=== PATIENT | male | born 1950 | race Caucasian/White ===

== ENCOUNTER 2018-12-20 13:29 | Day surgery (SDC) | payer MEDICARE, OTHER, SELFPAY ==
[2018-06-03 14:41] VITALS: BMI 28.1
--- NOTE | 2018-12-17 10:56 | PCM.HP.BLA ---
History and Physical Date of Admission: 12/20/18 HISTORY AND PHYSICAL ? Armando Warner 1950 ? REFERRING PHYSICIAN: ??Self, MD ? CHIEF COMPLAINT: ??Established Patient (EGD- Cardiac now cleared) ? HPI: The patient is a 68 year old male referred for endoscopy.??Per my previous H&P from 05/19/18: ? The patient is a 67 year old male referred for endoscopy. ?Armando notes progressive dysphagia x over a year, states symptoms have worsened following his open heart surgery in December 2016.??Notes swallowing difficulties both with solid food and liquids, has sensation of food becoming stuck with swallowing, will then start coughing and gagging. ?States this used to occur around once a week, now becoming more frequent and happening with almost every meal. ?He has tried ranitidine with little relief. ?Patient denies any change in bowel habits, weight changes, blood in stools, black tarry stools or abdominal pain.??He is a former smoker. ? ? Patient states he was told in the past that he had a hiatal hernia and thought his symptoms may be related to this. ?He was evaluated at [facility] by Dr. Marshall and underwent esophagram which showed a small hiatal hernia, severe esophageal dysmotility, and suspected mild stricturing of the distal esophagus. ??EGD was ordered for further evaluation. ?H&P from resident states that patient would need anesthesia consult prior to OR. ?Patient had requested to have EGD?done locally. ?[facility] schedulers contacted [facility] insurance sales supervisor, case was reviewed by?Dr. Burgess who agreed to perform EGD in [place]. ?Patient is scheduled to have this done Thursday05/24/18 under moderate sedation in the [facility]. ? On preop chart review, endoscopy staff had noted outside records with significant cardiac history not previously listed in patient's medical or surgical history in [facility]. ?[facility] staff updated patient's medical and surgical history and the information was relayed to Dr. Burgess who requested that patient have an office visit with either Kristyn Marcos CNP in GI or myself in General Surgery prior to his scheduled procedure. ?Patient was placed on my schedule urgently for office visit. ? Patient notes history of myocardial infarction in 2016, underwent CABG in December 2016. ?He follows with Dr. Rodriguez at [place] [place] in [facility], states was last seen around 3 months ago. ? ? Patient notes recurrent episodes of chest pain over the last year, has had several emergency department visits for this. ?He reports he had a stress test in January 2018 that came back OK. ?He admits to recently having episodes of severe pain up through the middle of his chest, different from his prior pain. ?States had one of these episodes last week while he was traveling. ?Had associated dizziness, nausea and general malaise, he also checked his blood pressure and noted it was significantly elevated at 170/105. ?He notes that he checks his blood pressure regularly twice a day and normally runs 130/80. ?Patient states that he thought about going to the ER during this episode, but decided to try over the counter garlic supplement instead. ?He states his symptoms gradually resolved over the next 3 days. ?When asked if he informed his PCP or credit and collections analyst of these symptoms, he states he has not. ?Patient also admits to shortness of breath with exertion. ?He denies any chest pain or other complaints in office here today. ?Denies problems with sedation in the past. ? ?Patient's procedure scheduled for the [facility] was cancelled, and he was instructed to follow up with credit and collections analyst for clearance prior to EGD. ?I had also recommended that when rescheduled he be set up with [facility] due to his cardiac history. ? Patient presents today to reschedule EGD with MAC. ?He has been evaluated by his credit and collections analyst in the interim since last visit, and those records are reviewed. ?Per Dr. Vickers's note from 05/28/18 patient is cleared for surgery-cardiac clearance scanned into [employer]. ?Patient notes he has been working to get his blood pressure under better control since last visit and this is going well. ?He denies any new complaints currently. ?He continues to note dysphagia, slightly worse since last visit. ?Patient has never had screening colonoscopy. ? The patient denies any significant change to his overall health since his last visit. ?His past medical history, past surgical history, medications and allergies are up to date as of this visit. ? ? PAST?MEDICAL?HISTORY PAST MEDICAL HISTORY Diagnosis Date ? Abnormal stress test ? ? Acid reflux ? ? CAD (coronary artery disease) ? ? Dyslipidemia ? ? Hiatal hernia ? ? History of stress test 02/08/2018 ? Lexiscan done at [facility] with credit and collections analyst Dr. Vickers ? HTN (hypertension) ? ? Hx of CABG 12/19/2016 ? x 3 ? Kidney stone ? ? Mild ascending aorta dilatation (HCC) ? ? Myocardial infarction (HCC) ? ? credit and collections analyst Dr. Vickers ? Paroxysmal atrial fibrillation (HCC) ? ? Vertigo ? ? ? PAST?SURGICAL?HISTORY PAST SURGICAL HISTORY Procedure Laterality Date ? BACK SURGERY HX ? ? ? CABG (3) VEIN GRAFTS & ARTERIAL GRAFT(S) ? 12/19/2016 ? INGUINAL HERNIA REPAIR HX ? ? ? 2 on the left and 1 on the right ? PAST SURGICAL HISTORY OF ? ? ? kidney stone extraction ? ? CURRENT?MEDICATIONS ? Current Outpatient Medications: metoprolol succinate ER (TOPROL XL) 25 mg 24 hr tablet ? lisinopril 2.5 mg tablet ? famotidine (PEPCID) 20 mg tablet ? atorvastatin (LIPITOR) 40 mg tablet ? ranitidine (ZANTAC) 150 mg tablet Take 150 mg by mouth twice daily. aspirin (ASPIR-81 ORAL) Take by mouth. ubidecarenone Q-10 (CO Q-10) 10 mg cap Take 200 mg by mouth twice daily. ? No current facility-administered medications for this visit.? ? ALLERGIES:?Patient has no known allergies. ? PERSONAL HISTORY:? SOCIAL?HISTORY Social History ??Socioeconomic History ?Marital status: ?Spouse name: Not on file ?Number of children: Not on file ?Years of education: Not on file ?Highest education level: Not on file ??Occupational History ?Not on file ??Social Needs ?Financial resource strain: Not on file ?Food insecurity: ?Worry: Not on file ?Inability: Not on file ?Transportation needs: ?Medical: Not on file ?Non-medical: Not on file ??Tobacco Use ?Smoking status: Former Smoker ?Smokeless tobacco: Never Used ??Substance and Sexual Activity ?Alcohol use: Not Currently ?Drug use: Not on file ?Sexual activity: Not on file ??Lifestyle ?Physical activity: ?Days per week: Not on file ?Minutes per session: Not on file ?Stress: Not on file ??Relationships ?Social connections: ?Talks on phone: Not on file ?Gets together: Not on file ?Attends mandaeism service: Not on file ?Active member of club or organization: Not on file ?Attends meetings of clubs or organizations: Not on file ?Relationship status: Not on file ?Intimate partner violence: ?Fear of current or ex partner: Not on file ?Emotionally abused: Not on file ?Physically abused: Not on file ?Forced sexual activity: Not on file ??Other Topics ?Concerns: ?Not on file ??Social History Narrative ?Not on file ? FAMILY HISTORY:? FAMILY?HISTORY FAMILY HISTORY Adopted: Yes ? REVIEW OF SYMPTOMS: ??The review of systems data was entered by the nurse and reviewed by me ? Nursing Notes: Joey Alas ?11/29/2018 ?9:36 AM ?Signed REVIEW OF SYSTEMS: ?General:???The patient denies fatigue, denies weight loss, denies weight gain, denies feeling hot, and denies feelings of cold. ?Eyes: ?The patient denies glaucoma, denies eye injury/surgery, does not wear glasses or contacts. ?Ear/Nose/Throat: ?The patient NOTES allergies, denies hayfever, denies ear infections, and denies bloody noses. ?Cardiovascular: ?The patient denies chest pain, denies heart disease, NOTES high blood pressure,denies cardiac stent, denies prior heart attack, denies irregular heart beat, denies high cholesterol, ?NOTES poor circulation, denies heart failure, other cardiac issues, denies claudication, NOTES cold feet, denies peripheral arterial stent. ?Respiratory: ?The patient denies tuberculosis, denies pneumonia, denies frequent cough, denies pulmonary embolism, NOTES shortness of breath, and denies coughing up blood. ?Gastrointestinal: ?The patient NOTES difficulty swallowing, denies acid reflux, denies ulcers, denies vomiting, denies jaundice/hepatitis, denies gallbladder problems, denies black or tarry stools, denies hemorrhoids, denies bleeding from rectum, denies diverticulitis, denies constipation, denies diarrhea, denies loss of stool control, and denies hernias. ?Kidney/Bladder: ?The patient denies kidney stones, denies urine infections, and denies bloody urine. ?Skin: ?The patient denies a history of skin cancer, denies bleeding/changing moles, and denies a history of skin rash. ?Neurologic: ?The patient denies a history of epilepsy/convulsions, denies headaches, denies head/spinal injuries, and denies stroke/TIA. ?Psychiatric: ?The patient denies psychiatric medications, denies depression, and denies voices, denies substance abuse. ?Endocrine: ?The patient denies thyroid disorders, denies diabetes, and denies hormonal problems. ?Hematologic: ?The patient denies a history of bruising, denies bleeding, and denies anemia, denies blood clots. ?Infections: ?The patient denies a history of measles and mumps, denies rheumatic fever, and denies sexually transmitted diseases. ?Musculoskeletal: ?The patient denies back pain/injury, denies back problems, NOTES sciatica, denies knee/foot trouble, NOTES arthritis, or denies gout. ? ? When was patient's last Mammogram screening? N/A ? ?Last Colonoscopy: ?NA, decline to schedule ? ? Joey Alas? I have confirmed and edited as necessary, the PFSH and ROS obtained by others. ? ? PHYSICAL EXAMINATION: ? General: ?The patient is 68 year old male, well nourished, well hydrated in no acute distress. ?The patient is oriented to time, place, and person. ? VITALS:?Blood pressure 138/74, pulse 68, temperature 36.2 ?C (97.1 ?F), temperature source Temporal Artery, height 185.4 cm (6' 1), weight 114.8 kg (253 lb), SpO2 99 %.?Body mass index is 33.38 kg/m?.? ? HEENT: ?Normal cephalic, ataumatic, pupils are equally round, sclera are anicteric, mucous membranes are moist, oropharynx is clear. ?Neck has no masses, asymmetry or lymphadenopathy. ? ? Respiratory: ?Clear to auscultation and percussion. ?Normal respiratory excursion and pattern. ? Cardiac: ?Examination is regular rate and rhythm. ?Normal S1/S2 ? Abdominal exam: ?Soft, nontender, ?with no palpable masses. ?No hepatosplenomegaly. ?No palpable hernias. ? Extremities: ?no clubbing, cyanosis or edema. ?No adenopathy. ? LABORATORY VALUES: As Noted ? RADIOLOGIC STUDIES: ?As Noted ? Assessment ? IMPRESSION:?dysphagia and chest pain, cardiac history-cleared by cardiology to proceed with EGD ? PLAN: ?I have reviewed my findings with the surgeon. ?Will plan for upper?endoscopy. ??Offered colonoscopy as patient has never had screening colonoscopy-he declines at this time.??We discussed the risks and benefits of the planned?EGD. ?I have informed the patient that complications can occur including failure to complete the endoscopy and perforation. ?The patient had the opportunity to ask questions concerning the planned endoscopy. ?My staff has also explained the procedure to the patient in understandable terms and has given the patient printed material concerning the procedure. ?The patient freely consents to surgery. ? We will plan for [facility]. ? ? Diagnoses:?(R13.10) Esophageal dysphagia ?(primary encounter diagnosis) (Z95.1) Hx of CABG (K44.9) Hiatal hernia (I25.2) History of [place] (myocardial infarction) (Z87.898) History of chest pain ? ? Brunilda Salas PA-C
--- NOTE | 2018-12-20 | IMM_PTH ---
PATIENT: MICHELLE SHEN LOC: EN U#:[id number] AGE/SX: 68/M ROOM: RE12/20/[address]: Dr. Luther Bucio MD : 1950 BED: DIS: 12/20/2018 SPEC #: [id number] RECD: 12/22/18 12:17 STATUS: NAVEED REQ #: [id number] JOÃO: 12/20/18 00:[address]: Luther Bucio DEPT: IMMUNOHISTOCHEMISTRY RECD BY: Kellie Crump ENTERED: 12/22/18 12:18 SP TYPE: IMMUNO OTHR DR: Dr. Joseluis Manzanares MD Tissues: A - Stomach, NOS Procedures: H Pylori (initial) PHYSICIAN & INSTITUTION [place] [id number] SPECIMEN INFORMATION: Tissue Source: A - Antral biopsy Clinical Info: Dysphagia, hiatal hernia, chest pain Specimen Number: [id number] CPT code: 35630 METHODOLOGY: Deparaffinized sections of prefer/formalin-fixed tissue or PAP/DQ stained slides are incubated with monoclonal/polyclonal antibodies/oligonucleotide probes. Localization is made via biotin free immunoperoxidase method. Appropriate controls are performed and reacted as expected. Results on target cell population are indicated in the following table: RESULTS: ANTIBODY / CLONE RESULT Block A H Pylori (polyclonal) negative These tests were developed and their performance characteristics determined by [facility]. They may not have been cleared or approved by the U.S. Food and Drug Administration. The FDA has determined that such clearance or approval is not necessary. The above immunohistochemical/dualISH markers are ordered and reviewed by the Pathologist. INTERPRETATION: A. Antral biopsy: Negative for Helicobacter pylori organisms. SJ:mariama 12/22/18
--- NOTE | 2018-12-20 13:30 | EGD_PTH ---
PATIENT: MICHELLE SHEN LOC: EN U#:[id number] AGE/SX: 68/M ROOM: RE12/20/[address]: Dr. Luther Bucio MD : 1950 BED: DIS: 12/20/2018 SPEC #: [id number] RECD: 12/20/18 16:52 STATUS: NAVEED MARISOL #: [id number] JOÃO: 12/20/18 13:[address]: Luther Bucio DEPT: SURGICAL PATHOLOGY RECD BY: Romero Hurtado ENTERED: 12/21/18 09:27 SP TYPE: EGD BIOPSY OT DR: Dr. Joseluis Manzanares MD Tissues: A - Gastric mucous membrane B - Gastric mucous membrane C - Esophageal mucous membrane Procedures: Special Stain Group II Surgery Specimen Level IV Alcian Blue/PAS (control) HEADER OPERATION: EGD ([facility]) PRE-OP DIAGNOSIS: Dysphagia, hiatal hernia, chest pain TISSUE SUBMITTED: A. Antral biopsy, B. Biopsy GE junction, C. Mid esophageal biopsy MICROSCOPIC DIAGNOSIS A. Antral biopsy: Mild gastritis. See microscopic description and comment. B. GE junction, biopsy: Fragments of gastroesophageal mucosa with mild chronic inflammation. Intestinal metaplasia (goblet cell metaplasia) is not identified. See comment. C. Mid esophageal biopsy: Fragments of squamous epithelium with minimal chronic inflammation. SJ:rg 12/22/18 COMMENT A. The results of immunohistochemistry for Helicobacter pylori will be reported separately ([id number]). B. Alcian blue/PAS stain with matched control is used in the evaluation of the specimen. MICROSCOPIC DESCRIPTION Slides are reviewed. A. The specimen shows fragments of gastric mucosa with chronic inflammatory cell infiltrates in the lamina propria consisting of lymphocytes and plasma cells, consistent with mild chronic gastritis. GROSS DESCRIPTION A - Received in fixative is one container labeled with the patient's name and designated antral biopsy. The specimen consists of one irregular fragment of light santiago soft tissue that measures 0.7 x 0.3 x 0.1 cm. The specimen is totally submitted in one cassette. B - Received in fixative is one container labeled with the patient's name and designated biopsy GE junction. The specimen consists of two irregular fragments of light santiago soft tissue that in aggregate measure 0.6 x 0.3 x 0.1 cm. The specimen is totally submitted in one cassette. C - Received in fixative is one container labeled with the patient's name and designated mid esophageal biopsy. The specimen consists of multiple irregular fragments of light santiago soft tissue that in aggregate measure 0.5 x 0.2 x 0.1 cm. The specimen is totally submitted in one cassette. / KRISTYN:mariama 12/21/18 TC:3 CPT: 45920 x3, 54307
[2018-12-20 13:48] VITALS: BP 139/86; PULSE 54; RESP 15; TEMP 36.1; O2SAT 98; BMI 33.7
[2018-12-20] MEDS: Lactated Ringers 1,000 ML 100 ML IV (13:59)
--- NOTE | 2018-12-20 16:26 | OP.EGD_ITS ---
Patient Name: Armando Warner Procedure Date: 12/20/2018 4:00 PM Date of : 1950 Age: 68 Procedure: Upper GI endoscopy Indications: Dysphagia Providers: Luther Bucio MD Referring MD: Joseluis Manzanares Medicines: [facility]itored [facility] Patient Profile: This is a 68 year old male. Refer to note in patient chart for documentation of history and physical. Complications: No immediate complications. Procedure: Pre-Anesthesia Assessment: - Prior to the procedure, a History and Physical was performed, and patient medications and allergies were reviewed. The patient is competent. The risks and benefits of the procedure and the sedation options and risks were discussed with the patient. All questions were answered and informed consent was obtained. Patient identification and proposed procedure were verified by the physician, the nurse and the cytology manager in the procedure room. Mental Status Examination: alert and oriented. Airway Examination: normal oropharyngeal airway and neck mobility. Respiratory Examination: clear to auscultation. CV Examination: normal. Prophylactic Antibiotics: The patient does not require prophylactic antibiotics. Prior Anticoagulants: The patient has taken no previous anticoagulant or antiplatelet agents. ASA Grade Assessment: III - A patient with severe systemic disease. After reviewing the risks and benefits, the patient was deemed in satisfactory condition to undergo the procedure. The anesthesia plan was to use monitored anesthesia care (MAC). Immediately prior to administration of medications, the patient was re-assessed for adequacy to receive sedatives. The heart rate, respiratory rate, oxygen saturations, blood pressure, adequacy of pulmonary ventilation, and response to care were monitored throughout the procedure. The physical status of the patient was re-assessed after the procedure. After obtaining informed consent, the endoscope was passed under direct vision. Throughout the procedure, the patient's blood pressure, pulse, and oxygen saturations were monitored continuously. The gastroscope was introduced through the mouth, and advanced to the jejunum. The upper GI endoscopy was accomplished without difficulty. The patient tolerated the procedure well. Scope In: 4:13:26 PM Scope Out: 4:20:48 PM Total Procedure Duration Time 0 hours 7 minutes 22 seconds Findings: The examined jejunum was normal. The examined duodenum was normal. Localized moderate inflammation characterized by erythema, friability and shallow ulcerations was found in the gastric antrum. Biopsies were taken with a cold forceps for Helicobacter pylori testing using PyloriTek test. Biopsies were taken with a cold forceps for histology. A medium-sized hiatal hernia was present. The Z-line was irregular and was found 36 cm from the incisors. Biopsies were taken with a cold forceps for histology. The lumen of the middle third of the esophagus was mildly dilated. Biopsies were taken with a cold forceps for histology. Impression: - Normal examined jejunum. - Normal examined duodenum. - Gastritis. Biopsied. - Medium-sized hiatal hernia. - Z-line irregular, 36 cm from the incisors. Biopsied. - Dilation in the middle third of the esophagus. Biopsied. Recommendation: - Discharge patient to home. - Resume previous diet. - Continue present medications. - Return to physician pharmacy innovation assistant in 1 week. Procedure Code(s): --- Professional --- 22155, Esophagogastroduodenoscopy, flexible, transoral; with biopsy, single or multiple CPT copyright 2017 [employer]. All rights reserved. The codes documented in this report are preliminary and upon reservation manager review may be revised to meet current compliance requirements. Luther Bucio MD 12/20/2018 4:26:42 PM This report has been signed electronically. Number of Addenda: 0 Note Initiated On: 12/20/2018 4:00 PM
[2018-12-20 16:27] VITALS: BP 133/76; BP 139/86; PULSE 51; RESP 16; TEMP 36.4; O2SAT 97
[2018-12-20 16:30] VITALS: BP 115/76; BP 139/86; PULSE 51; RESP 16; O2SAT 97
[2018-12-20 16:35] VITALS: BP 123/73; BP 139/86; PULSE 52; RESP 16; O2SAT 96
[2018-12-20 16:36] VITALS: BP 124/70; BP 139/86; PULSE 53; RESP 16; TEMP 36.9; O2SAT 96
[2018-12-20 16:58] VITALS: BP 139/86
== END 2018-12-20 16:58 | disposition home or self-care (01) ==
LOC: EN 13:33 → AC 13:36
PROVIDERS: Family Provider Family Medicine; PCP Family Medicine; Referring Provider Family Medicine; Visit Provider Surgery
PROC: 0DJ08ZZ Inspection of Upper Intestinal Tract, Via Natural or Artificial Opening Endoscopic (ICD-10-PCS; CPT 43235; principal; 2018-12-20 13:25)
DX: K29.70 Gastritis, unspecified, without bleeding (principal); K25.9 Gastric ulcer, unspecified as acute or chronic, without hemorrhage or perforation; K22.8 Other specified diseases of esophagus; K44.9 Diaphragmatic hernia without obstruction or gangrene; K21.9 Gastro-esophageal reflux disease without esophagitis; I25.10 Atherosclerotic heart disease of native coronary artery without angina pectoris; I25.2 Old myocardial infarction; E78.00 Pure hypercholesterolemia, unspecified; I10 Essential (primary) hypertension; I48.0 Paroxysmal atrial fibrillation; Z87.442 Personal history of urinary calculi; Z87.898 Personal history of other specified conditions; Z95.1 Presence of aortocoronary bypass graft; Z79.82 Long term (current) use of aspirin; Z79.899 Other long term (current) drug therapy; Z87.891 Personal history of nicotine dependence
CPT/HCPCS: 43239; 88305; 88313; 88342; J7120

== ENCOUNTER → 2020-07-02 | Outpatient (CLI) | payer MEDICARE, OTHER, SELFPAY ==
--- NOTE | 2020-07-02 11:30 | PROSBIL_PTH ---
PATIENT: MICHELLE SHEN LOC: [facility] U#:[id number] AGE/SX: 69/M ROOM: RE07/02/[address]: Dr. Emmanuel Harris MD : 1950 BED: DIS: 07/02/2020 SPEC #: [id number] RECD: 07/02/20 12:41 STATUS: NAVEED REQ #: [id number] JOÃO: 07/02/20 11:[address]: Emmanuel Harris DEPT: SURGICAL PATHOLOGY RECD BY: Katty Hyman ENTERED: 07/02/20 13:36 SP TYPE: PROST BX DL DR: Dr. Joseluis Manzanares MD Tissues: A - PROSTATE RIGHT B - PROSTATE RIGHT C - PROSTATE RIGHT D - PROSTATE LEFT E - PROSTATE LEFT F - PROSTATE LEFT Procedures: PROSTATE BX HEADER OPERATION: Prostate biopsy PRE-OP DIAGNOSIS: R97.20 TISSUE SUBMITTED: A - Right apex, B - Right mid, C - Right base, D - Left apex, E - Left mid, F - Left base MICROSCOPIC DIAGNOSIS A. Right prostate, apex, core biopsy: Prostatic adenocarcinoma. Jordan grade: 5+5=10 Number of cores involved: 2/2 Proportion of tissue involved: >95% Perineural invasion: Not identified. Greatest tumor length: 0.9 cm B. Right prostate, mid, core biopsy: Prostatic adenocarcinoma. Jordan grade: 5+5=10 Number of cores involved: 2/2 Proportion of tissue involved: ~80% Perineural invasion: Present Greatest tumor length: 1.4 cm See comment. C. Right prostate, base, core biopsy: Prostatic adenocarcinoma. [place]y grade: 5+5=10 Number of cores involved: 2/2 Proportion of tissue involved: ~75% Perineural invasion: not identified. Greatest tumor length: 0.9 cm See comment. D. Left prostate, apex, core biopsy: Prostatic adenocarcinoma. [place]y grade: 3+4=7 Number of cores involved: 2/2 Proportion of tissue involved: ~90% Perineural invasion: Present Greatest tumor length: 1 cm E. Left prostate, mid, core biopsy: Prostatic adenocarcinoma. Jordan grade: 3+4=7 Number of cores involved: 2/2 Proportion of tissue involved: ~60% Perineural invasion: Present Greatest tumor length: 0.6 cm F. Left prostate, base, core biopsy: Prostatic adenocarcinoma. Jordan grade: 3+4=7 Number of cores involved: 2/2 Proportion of tissue involved: ~50% Perineural invasion: Present Greatest tumor length: 0.9 cm SJ:mariama 07/03/2020 COMMENT B. Tertiary pattern 3 is also noted. C. Tertiary pattern 3 is also noted. Case has been reviewed in consultation with Dr. Puentes who concurs with the above diagnosis. IDC:AM MICROSCOPIC DESCRIPTION Slides are reviewed. GROSS DESCRIPTION A - Received is one container designated prostate, right apex. The specimen consists of two elongated fragments of light santiago-white soft tissue each measuring 1.5 cm in length and 0.1 cm in diameter. The specimen is totally submitted in one cassette. B - Received is one container designated prostate, right mid. The specimen consists of two elongated fragments of light santiago-white soft tissue each measuring 1.5 cm in length and 0.1 cm in diameter. The specimen is totally submitted in one cassette. C - Received is one container designated prostate, right base. The specimen consists of two elongated fragments of light santiago-white soft tissue each measuring 1 cm in length and 0.1 cm in diameter. The specimen is totally submitted in one cassette. D - Received is one container designated prostate, left apex. The specimen consists of two elongated fragments of light santiago-white soft tissue each measuring 1.5 cm in length and 0.1 cm in diameter. The specimen is totally submitted in one cassette. E - Received is one container designated prostate, left mid. The specimen consists of two elongated fragments of light santiago-white soft tissue measuring 1 and 1.5 cm in length and 0.1 cm in diameter. The specimen is totally submitted in one cassette. F - Received is one container designated prostate, left base. The specimen consists of two elongated fragments of light santiago-white soft tissue measuring 1 and 2 cm in length and 0.1 cm in diameter. The specimen is totally submitted in one cassette. / SJ:mariama 07/02/20 TC:0 [facility]: [id number]
== END | disposition home or self-care (01) ==
LOC: LABSPEC 13:14
PROVIDERS: PCP Family Medicine; Referring Provider Urology; Visit Provider Urology
DX: R97.20 Elevated prostate specific antigen [PSA] (principal)
CPT/HCPCS: 88305; G0416

== ENCOUNTER → 2020-07-11 07:06 | Outpatient (CLI) | payer MEDICARE, OTHER, SELFPAY ==
--- NOTE | 2020-07-11 07:13 | CT_ITS ---
STUDY: CT ABDOMEN AND PELVIS WITH CONTRAST REASON FOR EXAM: Male, 69 years old. Newly diagnosed prostate cancer. Elevated PSA. RADIATION DOSAGE (If Supplied By Facility): CTDIvol = ( 20.13 ) mGy, DLP = ( 1413.96 ) mGycm TECHNIQUE: Transaxial images were obtained from the dome of the diaphragm to the symphysis pubis without oral contrast. IV 100mL Isovue-300 was administered. Sagittal and coronal images were reconstructed. Individualized dose optimization techniques were used for this CT. COMPARISON: None. FINDINGS: Patchy areas of groundglass appearance are seen in both lower lobes. The visualized portions of the heart are within normal limits. Normal liver. There are multiple small gallstones. Normal spleen. Normal pancreas. Normal bilateral adrenal glands. Normal right kidney. Normal left kidney. There is a moderate hiatal hernia. Normal small intestine. Normal colon. The appendix is visualized and appears normal. There is diffuse atherosclerotic calcification of the abdominal aorta. 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 There is evidence of mural thrombus anteriorly. I also suspect an ulcerated plaque along the anterior aspect of the aorta. Normal inferior vena cava. Normal retroperitoneum. Small capacity urinary bladder There is enlargement of the prostate gland. It measures 5.5 cm x 6.4 cm. This causes indentation at the bladder base. There is irregular nodular enlargement, consistent anterior superior aspect. There is evidence of prior bilateral inguinal hernia repair. There are mild degenerative changes of the visualized lumbar spine. There is a 2.4 cm x 2 cm sclerotic focus in the acetabular region of the left hip joint. There are also multiple tiny sclerotic foci seen throughout the lumbar vertebrae. Correlation with a bone scan is recommended. CT/Abdomen/Pelvis W IV Cont ONLY IMPRESSION: Heterogeneous enlargement of the prostate with indentation at the bladder base as described. 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 2.4 cm x 2 summary sclerotic focus in the acetabular region of the left hip joint as well as multiple tiny sclerotic nodules seen throughout the lumbar vertebrae. Correlation with the bone scan is recommended. Multiple small gallstones. Electronically Signed: Santosh Bedolla MD at 10:18 EDT , Service support ,
[2020-07-11 07:35] LABS: EGFR FINGERSTICK > 60.0000 mL/min (>60)
== END ==
PROVIDERS: PCP Family Medicine; Referring Provider Urology; Visit Provider Urology
DX: C61 Malignant neoplasm of prostate (principal)
CPT/HCPCS: 74177; Q9967

== ENCOUNTER → 2020-07-12 08:55 | Outpatient (CLI) | payer MEDICARE, OTHER, SELFPAY ==
--- NOTE | 2020-07-12 09:01 | NM_ITS ---
CLINICAL: 69-year-old male with reported history of carcinoma of the prostate. WHOLE BODY 99m Tc MDP RADIONUCLIDE BONE SCINTIGRAPHY COMPARISON: CT of the abdomen-pelvis report 07/11/2020 FINDINGS: Following the intravenous administration of 26.0 mCi of 99m Tc MDP, whole body bone images reveal: 1. Focal increased radiopharmaceutical concentration is defined in the left acetabulum, right superior pubic ramus, the left iliac wing, the left posterior lateral ninth, posterior 10th ribs, the left scapula, the right anterior seventh rib. 2. Facilitated uptake is observed in the acromioclavicular and sternoclavicular compartments of both shoulders, patellofemoral parts of the bilateral knees, wrist articulations bilaterally, mid cervical spine posteriorly on the left and right, left posterior sacrum. 3. The remaining skeletal structures are scintigraphically unremarkable with normal-appearing renal images and urinary bladder activity identified. An increase in radiotracer distribution is demonstrated in the interorbital aspect of the skull, the right paramedian and left mandible most consistent with periostitis. NM/Bone Scan Whole Body IMPRESSION: 1. 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 2. 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 Electronically Signed: Luther Hodgson DO at 21:33 EDT Tel , Service support ,
== END ==
PROVIDERS: PCP Family Medicine; Referring Provider Urology; Visit Provider Urology
DX: C61 Malignant neoplasm of prostate (principal)
CPT/HCPCS: 78306; A9503